=== PATIENT | female | born 1995 | race Hispanic/Latino ===

== ENCOUNTER 2021-05-11 18:51 | Emergency (ER) | payer OTHER ==
--- OUTSIDE RECORDS SUMMARY | 2021-05-11 18:57 | XMS REPORT | Continuity of Care Document ---
:1995 Author Organization [facility] t Address [address] [place] [address] [address] [place] [address] Care Team Providers Name Role Phone Asked, Pcp Primary Care Physician Unavailable Problems Condition Condition Condition Status Onset Resolution Last Treating Co mments Source Name Details Category Date Date Treatment Clinician Date No known No known Disease Metho di active active st problems problems Hospit a l Allergies, Adverse Reactions, Alerts This patient has no known allergies or adverse reactions. Social History Social Habit Start Date Stop Date Quantity Comments Source Alcohol intake 2018-07-26 2018-07-26 Current Muslim 00:00:00 00:00:00 non-drinker of Hospital alcohol (finding) Sex Assigned At [birth year] [facility] 00:[facility]00 [facility] Smoking Status Start Date Stop Date Source Never smoker [facility] Medications Ordered Filled Start Stop Current Ordering Indication Dosage Frequency Signature Comments Components Source Medication Medication Date Date Medication? Clinician (SIG) Name Name ferrous Yes 325mg Q.5D Take 325 Metho di sulfate 325 6-[address] (65 FE) MG 00:38: mouth 2 [facility] tablet 59 (two) l times a day. Yes 1{tbl} QD Take 1 Metho di vit,calc76- 6-[address] iron-folic 00:38: mouth Hospit a 29 mg iron- 59 daily. l 1 mg tablet per tablet Procedures This patient has no known procedures. Plan of Care Planned Activity Planned Date Details Comments Source [facility] cervix (procedure) [code = 737833683] Future Scheduled Test INFLUENZA VACCINE [facility] [code = INFLUENZA VACCINE] Future Scheduled Test CHLAMYDIA SCREENING [facility] [code = CHLAMYDIA SCREENING] Future Scheduled Test COVID-19 VACCINE (1) [facility] [code = COVID-19 VACCINE (1)] Results This patient has no known results.
--- NOTE | 2021-05-12 02:54 | ER ---
Nurse's Notes [facility] [place] Name: Dorothea Aviles Age: 25 yrs Sex: Female : 1995 Arrival Date: 05/11/2021 Time: 18:58 Bed Waiting Private MD: Diagnosis: Presentation: 05/11 20:11 Chief complaint: Patient states: has had headache X 2 days, was exposed to COVID, iw started having vomiting since last night. Coronavirus screen: Client presents with at least one sign or symptom that may indicate coronavirus-19. Ebola Screen: Patient negative for fever greater than or equal to 101.5 degrees Fahrenheit, and additional compatible Ebola Virus Disease symptoms Patient denies exposure to infectious person. Patient denies travel to an Ebola-affected area in the 21 days before illness onset. No symptoms or risks identified at this time. Initial Sepsis Screen: Does the patient meet any 2 criteria? No. Patient's initial sepsis screen is negative. Does the patient have a suspected source of infection? No. Patient's initial sepsis screen is negative. Risk Assessment: Do you want to hurt yourself or someone else? Patient reports no desire to harm self or others. Onset of symptoms was May 09, 2021. 20:11 Method Of Arrival: Ambulatory iw 20:11 Acuity: [place] 4 iw Historical: - Allergies: 20:13 No Known Allergies; iw - Home Meds: 20:13 None [Active]; iw - PMHx: 20:13 Asthma; iw - PSHx: 20:13 None; iw - Social history:: Smoking status: Patient denies any tobacco usage or history of. Vital Signs: 20:11 Pulse 72; Resp 16 S; Temp 98.7; Pulse Ox 98% ; Weight 97.52 kg; Height 5 ft. 8 in. iw (172.72 cm); 20:11 Body Mass Index 32.69 (97.52 kg, 172.72 cm) iw ED Course: 18:58 Patient arrived in ED. mr 20:13 Triage completed. iw 20:13 Arm band placed on. iw 05/12 02:53 Patient's name was called from ER lobby. No response. Unable to locate patient. Will bb disposition as left without being seen by a provider. Administered Medications: No medications were administered Outcome: 02:54 Patient left the ED. bb Signatures: Carina Eldridge Brenda, RN RN bb Anamika Interiano RN RN iw Corrections: (The following items were deleted from the chart) 05/11 20:13 20:13 PMHx: Sammie; candelaria iw
[2021-05-12 02:57] VITALS: TEMP 98.7; O2SAT 98
== END 2021-05-12 02:54 | disposition left against medical advice (07) ==
LOC: ER 18:51
DX: Z53.21 Procedure and treatment not carried out due to patient leaving prior to being seen by health care provider (principal)
CPT/HCPCS: 99281; U0003